=== PATIENT | male | born 1990 ===

== ENCOUNTER 2020-12-20 12:33 | Emergency (ER) | payer OTHER ==
[~2020-12-20] VITALS: Ht 170.2 cm; Wt 149.7 kg
[2020-12-20] MEDS ORDERED: IBU800 MG PO (15:27)
[2020-12-20] MEDS ORDERED: Q-Tussin100 MG/5 M PO (15:27)
== END 2020-12-20 15:27 | disposition home or self-care (01) ==
LOC: ER 12:33
DX: U07.1 COVID-19 (principal); R10.9 Unspecified abdominal pain
CPT/HCPCS: 99284

== ENCOUNTER 2020-12-21 08:16 | Inpatient (IN) | payer OTHER ==
[~2020-12-21] VITALS: Ht 170.2 cm; Wt 149.7 kg
[~2020-12-21 08:16] MED LIST: IBU800 MG PO; Q-Tussin100 MG/5 M PO
[2020-12-21 13:38] LABS: BASOPHILS ABSOLUTE AUTO 0.02 K/mm3 (0.00-0.23); BASOPHILS PERCENT AUTO 0 % (0-2); EOSINOPHILS PERCENT AUTO 0 % (0-6); Hematocrit 44.6 % (37.0-53.0); Hemoglobin 14.3 g/dL (13.5-17.5); IMMATURE GRAN ABSOLUTE AUTO 0.02 K/mm3 (0.00-0.10); IMMATURE GRAN PERCENT AUTO 0 % (0-1); LYMPHOCYTES ABSOLUTE AUTO 2.39 K/mm3 (0.84-5.20); LYMPHOCYTES PERCENT AUTO 27 % (21-46); MONOCYTES ABSOLUTE AUTO 0.54 K/mm3 (0.16-1.47); MONOCYTES PERCENT AUTO 6 % (4-13); Mean Corpuscular HGB 30.3 pg (26.0-34.0); Mean Corpuscular HGB Conc 32.1 g/dL (31.5-36.5); Mean Corpuscular Volume 95 fL (80-100); Mean Platelet Volume 10.3 fL (9.1-12.4); NEUTROPHILS ABSOLUTE AUTO 5.87 K/mm3 (1.96-9.15); NEUTROPHILS PERCENT AUTO 67 % (41-73); Platelet Count 181 K/mm3 (150-400); RDW Coefficient Variation 13.2 % (11.7-14.2); RDW Standard Deviation 46.4 fL (35.1-46.3); Red Blood Cell Count 4.72 M/mm3 (4.30-5.90); White Blood Cell Count 8.84 K/mm3 (4.00-11.30)
[2020-12-21 13:47] LABS: Alanine Aminotransfer (ALT/SGP 149 U/L (12-78); Albumin, Blood 3.6 g/dL (3.4-5.0); Albumin/Globulin Ratio 0.9 (0.8-1.8); Alk Phos 53 U/L (50-136); Anion Gap 5 mmol/L (6-16); Aspartate Aminotrans (AST/SGOT 128 U/L (12-37); Bilirubin, Total 0.7 mg/dL (0.1-1.0); Blood Urea Nitrogen 10 mg/dL (8-24); Bun/Creatinine Ratio 10.4 (12.0-20.0); CO2, Blood 25 mmol/L (21-32); Calcium, Blood 8.4 mg/dL (8.5-10.1); Chloride, Blood 101 mmol/L (98-108); Creatinine, Blood 0.96 mg/dL (0.60-1.20); Glomerular Filtration Rate >60 (60-); Glucose, Blood 89 mg/dL (70-99); Potassium, Blood 3.9 mmol/L (3.5-5.5); Sodium, Blood 131 mmol/L (136-145); Total Protein, Blood 7.6 g/dL (6.4-8.2)
--- NOTE | 2020-12-21 19:09 | NUR ---
PT ARRIVED TO UNIT FROM ED USED SLIDER SHEET TO TRANSFER DUE TO PT FEELING TOO WEAK TO TRANSFER INDEPENDENTLY. ORIENTED TO CALL LIGHT, WHICH IS IN REACH.
[2020-12-21 19:40] LABS: PO2 Arterial 57.5 mmHg (80-100); pH Blood Arterial 7.46 (7.35-7.45)
[2020-12-22 05:29] LABS: Hematocrit 48.2 % (37.0-53.0); Hemoglobin 15.5 g/dL (13.5-17.5); Mean Corpuscular HGB 30.8 pg (26.0-34.0); Mean Corpuscular HGB Conc 32.2 g/dL (31.5-36.5); Mean Corpuscular Volume 96 fL (80-100); Platelet Count 176 K/mm3 (150-400); RDW Coefficient Variation 13.3 % (11.7-14.2); RDW Standard Deviation 47.8 fL (35.1-46.3); Red Blood Cell Count 5.03 M/mm3 (4.30-5.90); White Blood Cell Count 8.88 K/mm3 (4.00-11.30)
[2020-12-22 05:51] LABS: Anion Gap 4 mmol/L (6-16); Blood Urea Nitrogen 8 mg/dL (8-24); Bun/Creatinine Ratio 8.1 (12.0-20.0); CO2, Blood 30 mmol/L (21-32); Calcium, Blood 8.1 mg/dL (8.5-10.1); Chloride, Blood 100 mmol/L (98-108); Creatinine, Blood 0.99 mg/dL (0.60-1.20); Glomerular Filtration Rate >60 (60-); Glucose, Blood 123 mg/dL (70-99); Potassium, Blood 5.2 mmol/L (3.5-5.5); Sodium, Blood 134 mmol/L (136-145)
--- NOTE | 2020-12-22 06:32 | NUR ---
SHIFT SUMMARY- PT. NEW ADMIT FROM ED COVID POS. A&OX4, WITH COMPLAINTS OF GENERALIZED WEAKNESS. ASSISTED TRANSFER ONTO BED. PT. HAD FEVER AND COUGH UPON ARRIVAL. MEDICATED PER EMAR WITH GOOD EFFECT. ALSO C/O NOT BEING ABLE TO SLEEP, MELATONIN GIVEN PER EMAR. PT. SLEPT T/O THE NIGHT, NO APPARENT DISTRESS NOTED. ON 2L NC, VSS. CALL LIGHT WITHIN REACH AND SIDE RAILS UPX2. WILL CONT TO MONITOR.
--- NOTE | 2020-12-22 17:59 | NUR ---
SHIFT SUMMARY PT IS AO WITH SLOW RESPONSES. PT REQUIRES EXPLANATION FOR SIMPLE TERMINOLOGY/CONVERSATIONS. PT IS INDEPENDENT IN ROOM. PT DENIES PAIN, N/V, SOB. PT IS CURRENTLY ON RA WITH SATS GREATER THAN 90%. PT APPETITE IS GOOD. PT TELE RUNNING NSR IN THE 80S. NO PROCEDURES DONE THIS SHIFT. ENHANCED ISOLATION PRECAUTIONS MAINTAINED T/O SHIFT. PT DID NOT HAVE VISITORS PER COVID PROTOCOL. PT IS IN BED, CALL LIGHT IN REACH, LOW POSITION.
--- NOTE | 2020-12-23 05:35 | NUR ---
SHIFT SUMMARY- PT. HAD NO ACUTE EVENTS OVERNIGHT. ON RA, INDEPENDENT IN ROOM. NO COMPLAINTS OF PAIN OR DISCOMFORT T/O THE NIGHT, SHOWERED LAST NIGHT. VSS, CALL LIGHT WITHIN REACH AND SIDE RAILS UPX2. WILL CONT TO MONITOR.
[2020-12-23] MEDS ORDERED: ACET325 PO (11:14)
[2020-12-23] MEDS ORDERED: ALBU90OI INH (11:15)
[2020-12-23] MEDS ORDERED: Q-Tussin100 MG/5 M PO ×2 (11:20→11:23)
--- NOTE | 2020-12-23 11:55 | NUR ---
HOME O2 EVALUATION PT SATURATING 100% WHILE SITTING AT THE EDGE OF THE BED ON RA. SATURATIONS 95% AFTER WALKING AROUND THE ROOM FOR ABOUT 3 MINUTES. PT IS IN BED, CALL LIGHT IN REACH, LOW POSITION.
--- NOTE | 2020-12-23 13:33 | NUR ---
DISCHARGE NOTE PT IS AOX4. PT DENIES PAIN, N/V, SOB. PT IV REMOVED BY THIS RN PER DOCUMENTATIION. THIS RN REVIEWED DC INSTRUCTIONS AND MEDICATIONS WITH PT WHO VERBALIZED UNDERSTANDING. MEDICATIONS FAXED TO [facility]. TRANSPORTATION ARRANGED BY HOSPITAL FOR PT TO DC TO [address] AND PT CAN ARRANGE TRANSPORTATION TO [place] WHERE PT LIVES. PT IS ON RA. PT DRESSED SELF IN HOME CLOTHING. PT BELONGINGS GATHERED. PT WHEELED OFF UNIT BY RECTANGULAR TANK COOPER WITH BELONGINGS PRESENT.
== END 2020-12-23 13:15 | disposition home or self-care (01) | DRG 177 ==
LOC: ER 08:16 → MEDS 08:17
PROVIDERS: Physician Assistant; ADMIT Internal Medicine
PROC: 8E0ZXY6 Isolation (ICD-10-PCS; principal; 2020-12-22)
PROC: 3E0DX3Z Introduction of Anti-inflammatory into Mouth and Pharynx, External Approach (ICD-10-PCS; 2020-12-22)
PROC: XW033E5 Introduction of Remdesivir Anti-infective into Peripheral Vein, Percutaneous Approach, New Technology Group 5 (ICD-10-PCS; 2020-12-22)
PROC: XW033H6 Introduction of Other New Technology Monoclonal Antibody into Peripheral Vein, Percutaneous Approach, New Technology Group 6 (ICD-10-PCS; 2020-12-22)
DX: U07.1 COVID-19 (principal); J12.82 Pneumonia due to coronavirus disease 2019; J96.01 Acute respiratory failure with hypoxia; Z68.43 Body mass index [BMI] 50.0-59.9, adult; E87.1 Hypo-osmolality and hyponatremia; E66.01 Morbid (severe) obesity due to excess calories; G47.33 Obstructive sleep apnea (adult) (pediatric)
CPT/HCPCS: 36415; 36600; 71045; 71260; 80048; 80053; 82803; 84145; 85025; 85027; 86140; 93005; 93010; 94762; 96372; 96374-59; 96375; 99285-25; A9270; G0378; J1650; J2405; J7030; M0243; Q0243; Q9967